=== PATIENT | female | born 1980 | race African-American/Black ===

== ENCOUNTER 2019-02-09 19:00 | Emergency (ER) | payer MEDICAID ==
[~2019-02-09] VITALS: Ht 167.6 cm; Wt 65.8 kg
[~2019-02-09 19:00] MED LIST: BENADRYL25 M3 PO; BENADRYL25 MG ORAL; FERROUS SULFAT325 MG ORAL; HYDROCODON-ACE1 EA15 ORAL; KENALOG 0.1% CR15 GM APPLIC; MEDROL DOSEPAK4 MG ORAL; NKM; OCUFEN2.5 ML OP; REFRESH OPTIVE15 ML OP; ZOFRAN4 MG ORAL
[2019-02-09 19:10] VITALS: BP 118/79
--- NOTE | 2019-02-09 19:10 | NUR ---
ED Nurse Note: AMBULATED IN TO ER DUE TO ITCHING AND IRRITATION UNDERNEATH LEFT BREAST AND GROIN X 3 DAYS.
[2019-02-09] MEDS ORDERED: Bacitracin Oint UD TOPIC ONE (19:45)
--- NOTE | 2019-02-09 19:57 | Emergency Room Report ---
History of Present Illness General Chief Complaint: Skin Rash/Abscess Source: Patient Present Illness HPI Patient presents with itchy painful rash underneath her breasts and groin area. She had a similar rash many years ago. She denies fevers or chills. She has been scratching the areas underneath her breast and has breaks in her skin there. She denies history of diabetes. She denies dysuria. She has been using topical creams but not antifungals or antibiotics. She denies any upper respiratory symptoms, cough, dysuria or joint pain. There is no nausea, vomiting, diarrhea. She denies headache. 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/19 Now: No Reviewed Nursing Documentation: PMH: Agreed; PSxH: Agreed Nursing Documentation-PMH Past Medical History: No History, Except For Review of Systems All Other Systems: negative except mentioned in HPI Physical Exam Vital Signs Date Time Temp Pulse Resp B/P (MAP) Pulse Ox O2 Delivery O2 Flow Rate FiO2 02/09/19 19:05 100.0 95 12 118/79 100 Room Air General Appearance: well appearing, no apparent distress, GCS 15, non-toxic Head: normocephalic, atraumatic Eyes: bilateral eye normal inspection, bilateral eye PERRL ENT: hearing grossly normal, normal voice, moist mucus membranes Neck: full range of motion, supple Respiratory: no respiratory distress, speaking full sentences Musculoskeletal: no calf tenderness Neurologic: alert, oriented x3, normal gait, grossly normal Psychiatric: mood/affect normal Skin: normal color, warm/dry, other - Rash under breasts with minimal erythema and excoriations, rash in groin area with minimal erythema Medical Decision Making Diagnostic Impression: Primary Impression: Intertrigo Additional Impression: Cellulitis Qualified Codes: L03.313 - Cellulitis of chest wall ER Course Patient presents with rash under her breasts and groin area with pain and low- grade fever. Differential includes intertrigo, cellulitis amongst others. There is no evidence of abscess. Patient is not toxic at this time. Topical treatment is indicated. Clotrimazole and bacitracin are applied. In addition an Accu-Chek is performed. Accu-Chek normal. Patient improved with treatment and fevers decreased. Patient stable for outpatient observation and treatment. Advised of the need for outpatient follow-up. Last Vital Signs Date Time Temp Pulse Resp B/P (MAP) Pulse Ox O2 Delivery O2 Flow Rate FiO2 02/09/19 20:12 99.8 89 12 118/79 100 Room Air Status: improved Disposition: HOME, SELF-CARE Condition: Improved Scripts Bacitracin (Bacitracin) 28.4 Gm Oint...g. 1 APPLIC TOPIC BID, #30 GM Prov: Alpesh Vicente MD 02/09/19 Diphenhydramine Hcl (BENADRYL ALLERGY) 25 Mg Tablet 25 MG PO Q6HR, #20 TAB 1 Refill Prov: Alpesh Vicente MD 02/09/19 Clotrimazole* (LOTRIMIN*) 15 Gm Cream..g. 1 APPLIC TOPIC TWICE A DAY, #30 GM 2 Refills Prov: Alpesh Vicente MD 02/09/19 Alpesh Vicente MD Feb 09, 2019 19:57
[2019-02-09] MEDS ORDERED: CLOTRIMAZOLE15 GM TOPIC (20:00)
[2019-02-09] MEDS ORDERED: BACITRACIN15 GM TOPIC (20:00)
[2019-02-09] MEDS ORDERED: BENADRYL ALLERG25 M1 PO (20:00)
[2019-02-09 20:12] VITALS: BP 118/79
--- NOTE | 2019-02-09 20:13 | NUR ---
ED Nurse Note: Notified ERMD that pt's accucheck is 96. Pt cleared by health care Provider for discharge. DC instructions/prescription was given and explained to pt and verbalized understanding of teachings. All medical deviecs such as ID band removed. Pt is AAO x4, ambulatory and left with all personal belongings.
== END 2019-02-09 20:12 | disposition home or self-care (01) ==
LOC: EMR 19:52
DX: L30.4 Erythema intertrigo (principal); L03.313 Cellulitis of chest wall
CPT/HCPCS: 99282

== ENCOUNTER 2019-07-03 09:41 | Emergency (ER) | payer MEDICAID ==
[~2019-07-03] VITALS: Ht 165.1 cm; Wt 64.9 kg
[~2019-07-03 09:41] MED LIST changes: +BACITRACIN15 GM TOPIC; +BENADRYL ALLERG25 M1 PO; +CLOTRIMAZOLE15 GM TOPIC
--- NOTE | 2019-07-03 10:03 | NUR ---
ED Nurse Note: U/S contacted.
--- NOTE | 2019-07-03 10:08 | Emergency Room Report ---
History of Present Illness General Chief Complaint: Abdominal Pain Source: Patient Present Illness HPI 38-year-old female history of appendectomy presents with right upper quadrant pain that radiates to her right shoulder x4 days no aggravating alleviating factors, worse at night, severity is mild, to moderate, symptoms have been ongoing and constant. Patient denies any fevers chills chest pain shortness of breath Allergies: Coded Allergies: No Known Allergies (Unverified , 06/24/14) Patient History Last Menstrual Period: 26 June 2019 Now: No - urine sample requested : 0 Para: 0 Reviewed Nursing Documentation: PMH: Agreed; PSxH: Agreed Nursing Documentation-PMH Past Medical History: No History, Except For Review of Systems All Other Systems: negative except mentioned in HPI Physical Exam Vital Signs Date Time Temp Pulse Resp B/P (MAP) Pulse Ox O2 Delivery O2 Flow Rate FiO2 07/03/19 09:47 98.2 86 16 115/73 (87) 99 Room Air Sp02 EP Interpretation: reviewed, normal General Appearance: well appearing, no apparent distress, alert Head: normocephalic, atraumatic Eyes: bilateral eye PERRL, bilateral eye EOMI ENT: uvula midline, moist mucus membranes Neck: supple, thyroid normal, supple/symm/no masses Respiratory: lungs clear, no respiratory distress, no retraction, no accessory muscle use Cardiovascular #1: normal peripheral pulses, regular rate, rhythm, no edema, no gallop, no murmur Gastrointestinal: non tender, soft, no guarding, no rebound Musculoskeletal: normal inspection Neurologic: alert, oriented x3 Psychiatric: mood/affect normal Skin: no rash, warm/dry Medical Decision Making Diagnostic Impression: Primary Impression: Biliary colic Additional Impression: Pancreatic mass ER Course 38-year-old female presents with abdominal pain differential includes cholecystitis cholelithiasis biliary colic, gastritis, fibroids Patient apparently had a CT scan 1 to 2 weeks ago that was completely negative except for fibroids Patient is currently in no acute distress will attempt to evaluate for gallstones Patient incidentally found to have a prominent hypoechoic lesion at the pancreatic head Counseled patient to have an MRI as an outpatient and to follow-up with gastroenterology Disposition home with return precautions Laboratory Tests Test 07/03/19 10:10 07/03/19 10:20 Urine Color Pale yellow Urine Appearance Clear Urine pH 7 (4.5-8.0) Urine Specific [place] 1.005 (1.005-1.035) Urine Protein Negative (NEGATIVE) Urine Glucose (UA) Negative (NEGATIVE) Urine Ketones Negative (NEGATIVE) Urine Blood Negative (NEGATIVE) Urine Nitrite Negative (NEGATIVE) Urine Bilirubin Negative (NEGATIVE) Urine Urobilinogen Normal MG/DL (0.0-1.0) Urine Leukocyte Esterase Negative (NEGATIVE) Urine HCG, Qualitative Negative (NEGATIVE) White Blood Count 5.9 K/UL (4.8-10.8) Red Blood Count 4.97 M/UL (4.20-5.40) Hemoglobin 10.6 G/DL (12.0-16.0) L Hematocrit 35.6 % (37.0-47.0) L Mean Corpuscular Volume 71 FL (80-99) L Mean Corpuscular Hemoglobin 21.2 PG (27.0-31.0) L Mean Corpuscular Hemoglobin Concent 29.7 G/DL (32.0-36.0) L Red Cell Distribution Width 15.8 % (11.6-14.8) H Platelet Count 371 K/UL (150-450) Mean Platelet Volume 6.6 FL (6.5-10.1) Neutrophils (%) (Auto) 58.2 % (45.0-75.0) Lymphocytes (%) (Auto) 28.4 % (20.0-45.0) Monocytes (%) (Auto) 9.8 % (1.0-10.0) Eosinophils (%) (Auto) 2.1 % (0.0-3.0) Basophils (%) (Auto) 1.4 % (0.0-2.0) Sodium Level 138 MMOL/L (136-145) Potassium Level 4.1 MMOL/L (3.5-5.1) Chloride Level 104 MMOL/L (98-107) Carbon Dioxide Level 26 MMOL/L (21-32) Anion Gap 8 mmol/L (5-15) Blood Urea Nitrogen 13 mg/dL (7-18) Creatinine 0.9 MG/DL (0.55-1.30) Estimate Glomerular Filtration Rate > 60 mL/min (>60) Glucose Level 88 MG/DL (74-106) Calcium Level 9.0 MG/DL (8.5-10.1) Total Bilirubin 0.4 MG/DL (0.2-1.0) Aspartate Amino Transferase (AST) 30 U/L (15-37) Alanine Aminotransferase (ALT) 28 U/L (12-78) Alkaline Phosphatase 66 U/L (46-116) Total Protein 8.0 G/DL (6.4-8.2) Albumin 3.5 G/DL (3.4-5.0) Globulin 4.5 g/dL Albumin/Globulin Ratio 0.8 (1.0-2.7) L Lipase 293 U/L (73-393) EKG Diagnostic Results EKG Time: 10:12 EP Interpretation: NSR, rate 82, QTc 453, no acute ST elevations, normal axis Chest X-Ray Diagnostic Results Chest X-Ray Diagnostic Results : Chest X-Ray Ordered: Yes # of Views/Limited/Complete: 1 View Indication: Other - abdominal pain EP Interpretation: Yes Interpretation: no consolidation, no effusion, no pneumothorax, no acute cardiopulmonary disease Impression: No acute disease Electronically Signed by: Paulo Rosales MD CT/MRI/US Diagnostic Results CT/MRI/US Diagnostic Results : Impression US RUQ: No acute findings, hypoechoic prominent structure at pancreatic head Last Vital Signs Date Time Temp Pulse Resp B/P (MAP) Pulse Ox O2 Delivery O2 Flow Rate FiO2 07/03/19 09:47 98.2 86 16 115/73 (87) 99 Room Air Disposition: HOME, SELF-CARE Condition: Stable Scripts Naproxen* (NAPROSYN*) 250 Mg Tablet 250 MG ORAL BID PRN for For Pain, #20 TAB 0 Refills Prov: Paulo Rosales MD 07/03/19 Referrals: [facility] Dustin Neal [facility] Patient Instructions: Abdominal Pain, Adult, Biliary Colic, Cholelithiasis, [id number] Additional Instructions: The patient was provided with discharge instructions, notified to follow-up with a primary care doctor and or specialist in the next 24-48 hours, and to return to the ED if they have worsening of their symptoms. Please note that this report is being documented using [employer] technology. This can lead to erroneous entry secondary to incorrect interpretation by the dictating instrument. PLEASE OBTAIN A MRI MASS PROTOCOL AN OUTPATIENT TO EVALUATE YOUR PANCREAS. aPulo Rosales MD Jul 03, 2019 10:08
[2019-07-03 10:29] LABS: APPEARANCE,URINE CLEAR; BILIRUBIN, URINE NEGATIVE (NEGATIVE); COLOR,URINE PALE YELLOW; GLUCOSE, URINE (UA) NEGATIVE (NEGATIVE); KETONES,URINE NEGATIVE (NEGATIVE); LEUKOCYTE ESTERASE ,URINE NEGATIVE (NEGATIVE); NITRITE,URINE NEGATIVE (NEGATIVE); PH,URINE 7 (4.5-8.0); PROTEIN,URINE NEGATIVE (NEGATIVE); UROBILINOGEN,URINE NORMAL MG/DL (0.0-1.0)
[2019-07-03 10:41] LABS: BASOPHILS % (AUTO) 1.4 % (0.0-2.0); EOSINOPHILS % (AUTO) 2.1 % (0.0-3.0); HEMATOCRIT 35.6 % (37.0-47.0); HEMOGLOBIN 10.6 G/DL (12.0-16.0); LYMPHOCYTES % (AUTO) 28.4 % (20.0-45.0); MEAN CORPUSCULAR VOLUME 71 FL (80-99); MONOCYTES % (AUTO) 9.8 % (1.0-10.0); NEUTROPHILS % (AUTO) 58.2 % (45.0-75.0); PLATELET COUNT 371 K/UL (150-450); RED BLOOD COUNT 4.97 M/UL (4.20-5.40); RED CELL DISTRIBUTION WIDTH 15.8 % (11.6-14.8); WHITE BLOOD COUNT 5.9 K/UL (4.8-10.8)
[2019-07-03 10:47] LABS: ANION GAP 8 mmol/L (5-15); BLOOD UREA NITROGEN 13 mg/dL (7-18); CARBON DIOXIDE 26 MMOL/L (21-32); CHLORIDE 104 MMOL/L (98-107); CREATININE 0.9 MG/DL (0.55-1.30); POTASSIUM 4.1 MMOL/L (3.5-5.1); SODIUM 138 MMOL/L (136-145)
[2019-07-03 10:51] LABS: ALANINE AMINOTRANSFERASE 28 U/L (12-78); ALBUMIN 3.5 G/DL (3.4-5.0); ALBUMIN/GLOBULIN RATIO 0.8 (1.0-2.7); ALKALINE PHOSPHATASE 66 U/L (46-116); ASPARTATE AMINO TRANSFERASE 30 U/L (15-37); BILIRUBIN,TOTAL 0.4 MG/DL (0.2-1.0)
--- NOTE | 2019-07-03 11:06 | Diagnostic Imaging Report ---
Indication: Chest pain Technique: One view of the chest Comparison: 06/24/2014 Findings: Lungs and pleural spaces are clear. Heart size is normal . No significant interim change Impression: No acute process
[2019-07-03 11:35] VITALS: BP 99/62
--- NOTE | 2019-07-03 11:37 | NUR ---
ED Nurse Note: Patient nursed in ortho room in fast track. Triaged by SARATH Srivastava. Reviewed by Labs and urine sent to lab. Abdominal xray ordered. USS ordered andboth same completed. Pain score reassessed and vitals reassessed and as recorded. Patient unaccompained and lay in bed on the left side. Patient states the pain is worse at night. Last took Gaviscon at 2am none taken since then. Denies taking any other medications. Patient states she has had a pelvis CT but no results yet.
[2019-07-03] MEDS ORDERED: NAPROXEN250 MG ORAL (12:04)
--- NOTE | 2019-07-03 12:04 | Diagnostic Imaging Report ---
Indication: Abdominal pain Technique: Walsh-scale and duplex images of the upper abdomen were obtained Comparison: No comparison sonograms. Reference made to abdomen pelvis CT dated 05/03/2015 Findings: Gallbladder is unremarkable, without stones, wall thickening, nor pericholecystic fluid. Sonographic Mix's sign is negative. Common bile duct measures for mm in diameter. No intrahepatic biliary ductal dilatation. Liver demonstrates normal echogenicity, no focal abnormality. Portal vein and hepatic veins are patent. The pancreas demonstrates a hypoechoic mass within the pancreatic head measuring 2.6 cm in diameter. Spleen is unremarkable. Left kidney measures 9.1 cm in length. Right kidney measures 8.6 cm length. Both kidneys demonstrate normal echogenicity. There is no hydronephrosis. No focal abnormality . Abdominal aorta is partially obscured by bowel gas, visualized portions are non-aneurysmal . Incidentally noted is enlargement of the uterus, which contains multiple fibroids, including multiple large pedunculated subserosal fibroids. The enlarged uterus extends well into the lower abdomen. This is also demonstrated on the prior CT scan the pancreatic lesion is not evident on the prior CT Impression: Pancreatic head mass measuring 2.6 cm in diameter. This raises concern for pancreatic neoplasm. Reportedly, patient has had recent CT scan at an outside facility. Comparison to that exam is recommended. Enlarged uterus with multiple fibroids Negative for gallstones or dilated bile ducts. Findings discussed by phone with Dr. Rosales in the emergency room at the time of interpretation
--- NOTE | 2019-07-03 12:23 | NUR ---
ER DISCHARGE NOTE: Patient is cleared to be discharged per ERMD, pt is aox4, on room air. Vital signs as recorded. pt was given dc and prescription instructions, pt was able to verbalize understanding, pt id band and iv site removed without complications. pt is able to ambulate with steady gait. pt took all belongings. Patient aware to follow up for scan as advised. Discharge signature obtained. Vitals rchecked pre discharge. Dressed self from gown into own clothing
[2019-07-03 12:29] VITALS: BP 101/61
--- NOTE | 2019-07-04 17:20 | Cardiology Report ---
APPROVED REPORT EKG Measurement Heart [id number] Normal sinus rhythm Normal ECG
== END 2019-07-03 12:25 | disposition home or self-care (01) ==
LOC: EMR 11:09
DX: K80.50 Calculus of bile duct without cholangitis or cholecystitis without obstruction (principal); K86.9 Disease of pancreas, unspecified; Z90.49 Acquired absence of other specified parts of digestive tract; R07.9 Chest pain, unspecified
CPT/HCPCS: 36415; 71045; 76700; 80053; 81003; 81025; 83690; 85025; 93005; Z7502; 99284

== ENCOUNTER 2020-02-15 20:04 | Emergency (ER) | payer MEDICAID, OTHER ==
[~2020-02-15] VITALS: Ht 157.5 cm; Wt 64.0 kg
[~2020-02-15 20:04] MED LIST changes: +NAPROXEN250 MG ORAL
[2020-02-15 20:10] VITALS: BP 119/69
--- NOTE | 2020-02-15 20:10 | NUR ---
ED Nurse Note: Pt walked into ED from home for c/o increased vaginal bleeding onset today. Pt states she is and LMP was 12/10/19. She had US appt today and is awaiting on results, when she got home she started having increased vaginal bleeding. Pt states no fetus was seen on US. Pt has saturated 2 pads since 1800 tonight. Pt also c/o lower back pain. Pt is aaox4, no respiratory or cardiac distress.
--- NOTE | 2020-02-15 20:25 | NUR ---
ED Nurse Note: ERMD bedside for pelvic exam, female RN bedside as witness.
--- NOTE | 2020-02-15 20:38 | Emergency Room Report ---
History of Present Illness General Chief Complaint: Vaginal Source: Patient Present Illness HPI Patient is a 47-year-old female presents after increased vaginal bleeding. Patient states that she had a recent pelvic ultrasound. Reports having saw her ADVERTISING ANALYST today. States that she is approximately 9 weeks by dates. Last menstrual period was approximately December 15. G1, P0. Denies any fever. Denies any vomiting. Reports having pelvic cramping. Prior history of fibroid uterus. Allergies: Coded Allergies: No Known Allergies (Unverified , 06/24/14) COVID-19 Screening Contact w/high risk pt: No Recent Travel to affected area: No Experienced COVID-19 symptoms?: No Patient History Past Medical History: see triage record Last Menstrual Period: 12/10/2019 Now: No : 0 Reviewed Nursing Documentation: PMH: Agreed; PSxH: Agreed Nursing Documentation-PMH Past Medical History: No Stated History Review of Systems All Other Systems: negative except mentioned in HPI Physical Exam Vital Signs Date Time Temp Pulse Resp B/P (MAP) Pulse Ox O2 Delivery O2 Flow Rate FiO2 02/15/20 20:06 98.2 104 22 97/62 (74) 98 Room Air Sp02 EP Interpretation: reviewed, normal General Appearance: normal inspection, well appearing, no apparent distress, alert, GCS 15 Head: atraumatic ENT: normal ENT inspection, hearing grossly normal, normal voice Neck: normal inspection, full range of motion, supple, no bony tend Respiratory: normal inspection, lungs clear, normal breath sounds, no respiratory distress, no retraction, no wheezing Cardiovascular #1: regular rate, rhythm, no edema Gastrointestinal: normal inspection, normal bowel sounds, non tender, soft, no guarding, no hernia Genitourinary: no CVA tenderness, other - Os small amount of clots Musculoskeletal: normal inspection, back normal, normal range of motion Neurologic: alert, responsive, speech normal, normal inspection Psychiatric: normal inspection, judgement/insight normal, mood/affect normal Skin: no rash Medical Decision Making Diagnostic Impression: Primary Impression: complication ER Course Patient presented for vaginal bleeding. Differential diagnosis include was not limited to ectopic , demise, incomplete , completed among others. Because of complexity of patient's case laboratory tests and imaging studies were ordered. Patient was noted to have adequate hemoglobin. Patient's quantitative beta-hCG was above the discriminatory zone however given patient's exam patient appears to be likely had a miscarriage. Patient is observed in the emergency department and was reportedly having decreased bleeding over time. Patient was given IV fluids. Patient was advised to follow-up with her ADVERTISING ANALYST for recheck of quantitative beta-hCG. She is advised to return if increased bleeding worsening pain or fever. Or other concerns Last Vital Signs Date Time Temp Pulse Resp B/P (MAP) Pulse Ox O2 Delivery O2 Flow Rate FiO2 02/15/20 20:06 98.2 104 22 97/62 (74) 98 Room Air Harsh Odell MD Feb 15, 2020 20:38
--- NOTE | 2020-02-15 20:45 | NUR ---
ED Nurse Note: US tech bedside.
[2020-02-15 21:08] LABS: BASOPHILS % (AUTO) 1.2 % (0.0-2.0); EOSINOPHILS % (AUTO) 0.5 % (0.0-3.0); HEMATOCRIT 40.6 % (37.0-47.0); HEMOGLOBIN 12.4 G/DL (12.0-16.0); LYMPHOCYTES % (AUTO) 14.3 % (20.0-45.0); MEAN CORPUSCULAR VOLUME 80 FL (80-99); MONOCYTES % (AUTO) 6.5 % (1.0-10.0); NEUTROPHILS % (AUTO) 77.6 % (45.0-75.0); PLATELET COUNT 212 K/UL (150-450); RED BLOOD COUNT 5.08 M/UL (4.20-5.40); RED CELL DISTRIBUTION WIDTH 21.4 % (11.6-14.8); WHITE BLOOD COUNT 7.6 K/UL (4.8-10.8)
[2020-02-15 21:14] LABS: INR 1.1 (0.9-1.1)
[2020-02-15 21:16] LABS: ANION GAP 12 mmol/L (5-15); BLOOD UREA NITROGEN 10 mg/dL (7-18); CALCIUM 9.2 MG/DL (8.5-10.1); CARBON DIOXIDE 24 MMOL/L (21-32); CHLORIDE 103 MMOL/L (98-107); CREATININE 0.9 MG/DL (0.55-1.30); POTASSIUM 4.3 MMOL/L (3.5-5.1); SODIUM 139 MMOL/L (136-145)
[2020-02-15 21:20] LABS: ALANINE AMINOTRANSFERASE 35 U/L (12-78); ALBUMIN 3.4 G/DL (3.4-5.0); ALBUMIN/GLOBULIN RATIO 0.8 (1.0-2.7); ALKALINE PHOSPHATASE 52 U/L (46-116); ASPARTATE AMINO TRANSFERASE 40 U/L (15-37); BILIRUBIN,TOTAL 0.5 MG/DL (0.2-1.0)
--- NOTE | 2020-02-15 21:24 | Diagnostic Imaging Report ---
EXAM: US First Trimester , Transabdominal and Transvaginal CLINICAL HISTORY: ABD PAIN TECHNIQUE: Real-time transabdominal and transvaginal obstetrical ultrasound of the maternal pelvis and a first trimester with image documentation. Transvaginal imaging was used for better evaluation of the fetus and adnexa. COMPARISON: No relevant prior studies available. FINDINGS: Limitations: Bowel gas. Gestation: An intrauterine is not identified. Placenta/amniotic fluid: Cannot be adequately evaluated due to the early gestational age. Uterus/cervix: Enlarged myomatous uterus measures 11.9 x 5.7 x 7.5 cm. The largest fibroid is the partially exophytic subserosal fibroid arising from the anterior uterine corpus measures up to 8 cm. Normal endometrium measuring 8 mm. Ovaries: Bilateral ovaries were not visualized due to bowel gas. Free fluid: No free fluid. IMPRESSION: 1. An intrauterine is not identified. Findings are indeterminate and can be seen in the setting of an early intrauterine , failed , or ectopic . Short interval follow- up and serial serum beta hCGs are recommended. 2. Enlarged myomatous uterus.
[2020-02-15 21:57] LABS: APPEARANCE,URINE SLIGHTLY CLOUDY; BILIRUBIN, URINE NEGATIVE (NEGATIVE); COLOR,URINE PALE YELLOW; GLUCOSE, URINE (UA) NEGATIVE (NEGATIVE); KETONES,URINE NEGATIVE (NEGATIVE); LEUKOCYTE ESTERASE ,URINE NEGATIVE (NEGATIVE); NITRITE,URINE NEGATIVE (NEGATIVE); PH,URINE 8 (4.5-8.0); PROTEIN,URINE 1+ (NEGATIVE); UROBILINOGEN,URINE NORMAL MG/DL (0.0-1.0)
[2020-02-15 22:30] VITALS: BP 101/54
--- NOTE | 2020-02-15 22:30 | NUR ---
ED Nurse Note: Pt able to ambulate to restroom with steady gait. Pt has no pain at this time. Pt also states bleeding has decreased since arrival and has not saturated the pad yet. No acute distress noted. VSS.
[2020-02-15 22:50] VITALS: BP 115/66
--- NOTE | 2020-02-15 22:50 | NUR ---
ER DISCHARGE NOTE: Patient is cleared to be discharged per ERMD, pt is aox4, on room air, with stable vital signs. pt was given dc instructions, pt was able to verbalize understanding, pt id band and iv site removed without complications. pt is able to ambulate with steady gait. pt took all belongings.
== END 2020-02-15 22:50 | disposition home or self-care (01) ==
LOC: MERGE 22:10 → EDBD 22:10 → EMR 22:10
DX: O46.90 Antepartum hemorrhage, unspecified, unspecified trimester (principal)
CPT/HCPCS: 36415; 76801; 76817; 80053; 81003; 83690; 84702; 85025; 85610; 85730; 86900; 86901; 87086; 96360; J7030; Z7502; 99284